=== PATIENT | female | born 1965 | race Caucasian/White ===

== ENCOUNTER → 2017-12-08 | Outpatient (CLI) | payer BC ==
[2017-12-08 12:48] LABS: ADD MAN DIFF? NO
[2017-12-08 12:51] LABS: BASO # 0.1 x10^3/uL (0.0-0.2); BASO % 1 % (0-3); EOS # 0.1 x10^3/uL (0.0-0.7); EOS % 1 % (0-3); HEMATOCRIT 43.9 % (36.0-47.0); HEMOGLOBIN 15.1 g/dL (12.0-15.5); LYMPH % 36 % (24-48); MEAN CORPUSCULAR HEMOGLOBIN 30 pg (25-35); MEAN CORPUSCULAR HGB CONC 35 g/dL (31-37); MEAN CORPUSCULAR VOLUME 88 fL (79-100); MONO # 0.8 x10^3/uL (0.0-1.1); MONO % 10 % (0-9); NEUT # 4.2 x10^3uL (1.8-7.7); NEUT % 52 % (31-73); PLATELET COUNT 294 x10^3/uL (140-400); RED BLOOD COUNT 4.99 x10^6/uL (3.50-5.40); RED CELL DISTRIBUTION WIDTH 13.3 % (11.5-14.5); WHITE BLOOD COUNT 8.2 x10^3/uL (4.0-11.0)
[2017-12-08 13:00] LABS: PARTIAL THROMBOPLASTIN TIME 26 SEC (24-38)
[2017-12-08 13:05] LABS: INR 0.9 (0.8-1.1); PROTHROMBIN TIME PATIENT 11.8 SEC (11.7-14.0)
[2017-12-08 13:09] LABS: ALBUMIN 3.9 g/dL (3.4-5.0); ALBUMIN/GLOBULIN RATIO 0.9 (1.0-1.7); ALK PHOS 77 U/L (46-116); ALT (SGPT) 43 U/L (14-59); ANION GAP 10 (6-14); AST (SGOT) 23 U/L (15-37); BLOOD UREA NITROGEN 16 mg/dL (7-20); BUN/CREATININE RATIO 20 (6-20); CALCIUM 10.1 mg/dL (8.5-10.1); CARBON DIOXIDE 26 mmol/L (21-32); CHLORIDE 100 mmol/L (98-107); CREATININE 0.8 mg/dL (0.6-1.0); GFR 75.6; GLUCOSE 169 mg/dL (70-99); POTASSIUM 4.3 mmol/L (3.5-5.1); SODIUM 136 mmol/L (136-145); TOTAL BILIRUBIN 0.3 mg/dL (0.2-1.0); TOTAL PROTEIN 8.4 g/dL (6.4-8.2)
[2017-12-09 00:14] LABS: MRSA BY PCR Negative (Negative)
[2017-12-10 04:22] LABS: HEMOGLOBIN A1C 7.1 % (4.8-5.6)
== END | disposition home or self-care (01) ==
LOC: SURGPAT 11:45
DX: Z01.818 Encounter for other preprocedural examination (principal); M51.16 Intervertebral disc disorders with radiculopathy, lumbar region; M48.061 Spinal stenosis, lumbar region without neurogenic claudication
CPT/HCPCS: 36415; 80053; 83036; 85025; 85610; 85730; 87641

== ENCOUNTER 2017-12-15 08:25 | Day surgery (SDC) | payer BC ==
[~2017-12-15 08:25] MED LIST: LIDOCAINE 1% PF 2 ML VIAL. ID; MORPHINE SULFATE 4 MG/ML DISP.SYRIN. IV; ONDANSETRON PF 4 MG/2 ML VIAL. IV; PROCHLORPERAZINE 10 MG/2 ML VIAL. IV; ceFAZolin 2GM PREMIX 2 GM/50 ML BAG IV; fentaNYL PF VIAL 100 MCG/2 ML VIAL IV
[2017-12-15] MEDS: IV RINGERS,LACTATED 1000ML 1,000 ML IV (08:52)
[2017-12-15 08:56] LABS: POC GLUCOSE 139 mg/dL (70-99)
[2017-12-15] MEDS ORDERED: ROCURONIUM 50 MG/5 ML VIAL. (09:46)
[2017-12-15] MEDS ORDERED: MIDAZOLAM HCL/PF 2 MG/2 ML VIAL. (09:46)
[2017-12-15] MEDS ORDERED: GLYCOPYRROLATE 1 MG/5 ML VIAL. (09:46)
[2017-12-15] MEDS ORDERED: REMIFENTANIL 2 MG VIAL. IV (09:46)
[2017-12-15] MEDS ORDERED: DEXAMETHASONE SOD PHOS 20 MG/5 ML VIAL. (09:47)
[2017-12-15] MEDS ORDERED: PROPOFOL 50 ML IV ×2 (09:47→11:37)
[2017-12-15] MEDS ORDERED: FAMOTIDINE 20 MG/2 ML VIAL (09:47)
[2017-12-15] MEDS ORDERED: DESFLURANE > 120 MINUTES IH (09:47)
[2017-12-15] MEDS ORDERED: PROPOFOL 20 ML IV (09:47)
[2017-12-15] MEDS ORDERED: ONDANSETRON PF 4 MG/2 ML VIAL. (09:47)
[2017-12-15] MEDS ORDERED: PHENYLEPHRINE 10 MG/ML VIAL. (09:47)
[2017-12-15] MEDS: KETOROLAC 60 MG/2 ML INJ FOR OR. (12:00)
[2017-12-15] MEDS: BUPIVAC MPF-EPI 0.5%-1:200000 30 ML VIAL. INJ (12:00)
[2017-12-15] MEDS: BACITRACIN 50,000 UNIT in IV NORMAL SALINE 1000ML BAG 1,000 ML IRR (12:00)
[2017-12-15] MEDS: GELATIN SPONGE SIZE 100. (12:00)
[2017-12-15] MEDS: THROMBIN TOPICAL 20,000 UNIT SPRAY.SYRN KIT TP (12:00)
[2017-12-15] MEDS ORDERED: KETOROLAC 30 MG/ML INJ FOR OR. INJ (12:35)
[2017-12-15] MEDS: fentaNYL PF VIAL 100 MCG/2 ML VIAL IV (13:56)
[2017-12-15] MEDS: HYDROcodone/APAP 7.5/325MG 1 TAB TABLET PO (14:20)
[2017-12-16 06:19] LABS: POC GLUCOSE 125 mg/dL (70-99)
== END 2017-12-15 15:09 | disposition home or self-care (01) ==
LOC: SURG 08:25
DX: M51.16 Intervertebral disc disorders with radiculopathy, lumbar region (principal); M48.061 Spinal stenosis, lumbar region without neurogenic claudication; I10 Essential (primary) hypertension; E11.9 Type 2 diabetes mellitus without complications; Z98.890 Other specified postprocedural states; Z79.899 Other long term (current) drug therapy; Z79.84 Long term (current) use of oral hypoglycemic drugs; Z79.1 Long term (current) use of non-steroidal anti-inflammatories (NSAID); Z83.3 Family history of diabetes mellitus; Z82.49 Family history of ischemic heart disease and other diseases of the circulatory system; Z80.9 Family history of malignant neoplasm, unspecified
CPT/HCPCS: 63030; 76000; 82962; 97161-GP; J0690; J1100; J1885; J2250; J2405; J2704; J3010; J3490; J7030; S0028